=== PATIENT | male | born 1965 | race Caucasian/White ===

== ENCOUNTER 2022-05-26 09:27 | Emergency (ER) | payer BC ==
[~2022-05-26 09:27] MED LIST: DAYPRO600 M1 PO
[2022-05-26] MEDS ORDERED: METHOCARBAMOL750 M1 PO (09:55)
[2022-05-26] MEDS ORDERED: IBU800 MG PO (09:55)
== END 2022-05-26 10:09 | disposition home or self-care (01) ==
LOC: ED 09:27
DX: S39.011A Strain of muscle, fascia and tendon of abdomen, initial encounter (principal); X58.XXXA Exposure to other specified factors, initial encounter; Y93.89 Activity, other specified; Y92.89 Other specified places as the place of occurrence of the external cause; Y99.8 Other external cause status

== ENCOUNTER 2023-01-14 16:10 | Emergency (ER) | payer OTHER, BC ==
[~2023-01-14] VITALS: Ht 182.8 cm; Wt 97.5 kg
[~2023-01-14 16:10] MED LIST changes: +IBU800 MG PO; +METHOCARBAMOL750 M1 PO
[2023-01-14] MEDS ORDERED: HYDROCODONE-AC1 EAC1 PO (18:20)
== END 2023-01-14 19:06 | disposition home or self-care (01) ==
LOC: ED 16:10
DX: S60.511A Abrasion of right hand, initial encounter (principal); S80.212A Abrasion, left knee, initial encounter; S60.512A Abrasion of left hand, initial encounter; S09.90XA Unspecified injury of head, initial encounter; V29.99XA Rider (driver) (passenger) of other motorcycle injured in unspecified traffic accident, initial encounter; Y93.55 Activity, bike riding; Y92.410 Unspecified street and highway as the place of occurrence of the external cause; Y99.8 Other external cause status

== ENCOUNTER 2025-07-28 21:27 | Emergency (ER) | payer BC ==
[~2025-07-28] VITALS: Ht 182.8 cm; Wt 94.8 kg
[~2025-07-28 21:27] MED LIST changes: +HYDROCODONE-AC1 EAC1 PO
[2025-07-28 22:31] LABS: BASO # 0.1 10*3/uL (0.0-0.1); BASO % 0.4 % (0.0-1.0); EOS # 0.2 10*3/uL (0.0-0.4); EOS % 1.8 % (1.0-4.0); MEAN CELL VOLUME 90.8 fl (80.0-94.0); MEAN CORPUSCULAR HGB 30.2 pg (27.0-31.0); MEAN PLATELET VOLUME 9.2 fl (9.6-12.3); MONO # 1.0 10*3/uL (0.1-1.0); MONO % 9.0 % (3.0-9.0); NEUT # 7.6 10*3/uL (2.3-7.9); NEUT % 67.0 % (47.0-73.0); NUCLEATED RED BLOOD CELL 0.0 % (0.0-0.0); NUCLEATED RED BLOOD CELL 0.0 10*3/uL (0.0-0.0); PLATELET COUNT AUTOMATED 207 10*3/uL (130-400); RED CELL DISTRI WIDTH 12.7 % (0-14.5)
[2025-07-28 22:55] LABS: BUN 15 mg/dl (9-23)
[2025-07-28] MEDS ORDERED: Ondansetron Hydrochloride 4 MG TAB SL ONE (23:00)
[2025-07-28] MEDS ORDERED: Acetaminophen/Hydrocodone HP 10/325 PO ONE (23:00)
[2025-07-28] MEDS ORDERED: Ciprofloxacin Hydrochloride 500 MG TAB PO ONE (23:00)
[2025-07-28] MEDS ORDERED: metroNIDAZOLE 500 MG TAB PO ONE (23:00)
[2025-07-28] MEDS ORDERED: CIPRO500 MG PO (23:01)
[2025-07-28] MEDS ORDERED: METRONIDAZOLE500 M1 PO (23:01)
== END 2025-07-28 23:19 | disposition home or self-care (01) ==
LOC: ED 21:27
PROVIDERS: Internal Medicine
DX: K57.32 Diverticulitis of large intestine without perforation or abscess without bleeding (principal); Z79.899 Other long term (current) drug therapy